=== PATIENT | female | born 1970 | race Caucasian/White ===

== ENCOUNTER 2018-12-03 15:03 | Emergency (ER) | payer BC ==
[~2018-12-03] VITALS: Ht 172.7 cm; Wt 86.4 kg
[2018-12-03 15:03] VITALS: BP 198/98
[2018-12-03] MEDS ORDERED: TRAM1CAP15 PO (15:09)
[2018-12-03] MEDS ORDERED: ZANT300T9 PO (15:09)
[2018-12-03] MEDS ORDERED: PRIL20TA2 PO (15:09)
[2018-12-03] MEDS ORDERED: CLINDAMYCIN 150 MG CAP PO ONE (15:45)
[2018-12-03] MEDS ORDERED: NAPR-50 PO (15:49)
[2018-12-03] MEDS ORDERED: CLIN150C14 PO (15:49)
[2018-12-03] MEDS ORDERED: MAGICMW MT (15:52)
== END 2018-12-03 16:00 | disposition home or self-care (01) ==
LOC: M ED 15:03
DX: K04.7 Periapical abscess without sinus (principal); S02.5XXA Fracture of tooth (traumatic), initial encounter for closed fracture; X58.XXXA Exposure to other specified factors, initial encounter; Y92.89 Other specified places as the place of occurrence of the external cause; Z79.899 Other long term (current) drug therapy; F17.210 Nicotine dependence, cigarettes, uncomplicated

== ENCOUNTER 2021-03-13 18:08 | Emergency (ER) | payer BC ==
[~2021-03-13] VITALS: Ht 170.2 cm; Wt 89.1 kg
[~2021-03-13 18:08] MED LIST: CLIN150C15 PO; MAGICMW MT; NAPR-837 PO; PRIL20TA2 PO; TRAM1CAP15 PO; ZANT300T9 PO
[2021-03-13] MEDS ORDERED: TRAM50TA2 PO (18:21)
[2021-03-13 18:37] VITALS: BP 168/99
== END 2021-03-13 19:30 | disposition left against medical advice (07) ==
LOC: M ED 18:08
DX: Z53.21 Procedure and treatment not carried out due to patient leaving prior to being seen by health care provider (principal)

== ENCOUNTER → 2021-11-03 | Outpatient (CLI) | payer BC ==
[~2021-11-03] MED LIST changes: -CLIN150C15 PO; +CLIN150C17 PO; +TRAM50TA2 PO
--- NOTE | 2021-11-03 09:05 | REP ---
INDICATION: ACUTE BRONCHITIS, TOBACCO USE COMPARISON: None. TECHNIQUE: PA/Lateral FINDINGS: Lungs: Clear, no infiltrate. Heart: Normal in size. Mediastinum: Mediastinal silhouette unremarkable. Pleural angles: Unremarkable.. Bones and soft tissues: Unremarkable. IMPRESSION: No acute pulmonary disease. <Electronically signed by Pino Hobbs > 11/03/21 0901
== END ==
LOC: M WUC 08:50
PROVIDERS: ATTEND Physician Assistant
DX: J20.9 Acute bronchitis, unspecified (principal); Z72.0 Tobacco use; Z20.828 Contact with and (suspected) exposure to other viral communicable diseases

== ENCOUNTER → 2024-05-22 | Outpatient (CLI) | payer BC | LOC: M RAD 15:48 | PROVIDERS: ATTEND Nurse Practitioner | DX: Z12.2 Encounter for screening for malignant neoplasm of respiratory organs (principal); F17.211 Nicotine dependence, cigarettes, in remission ==